=== PATIENT | female | born 1990 | race Asian ===

== ENCOUNTER 2019-02-20 16:41 | Emergency (ER) | payer SELFPAY ==
[~2019-02-20] VITALS: Ht 162.6 cm; Wt 88.2 kg
[2019-02-20 17:09] VITALS: Ht 162.6 cm; Wt 88.2 kg
[2019-02-20] MEDS ORDERED: ACETAMINOPHEN 500 MG TAB PO STA (17:37)
[2019-02-20] MEDS ORDERED: KETOROLAC 60 MG INJ IM STA (17:37)
[2019-02-20] MEDS ORDERED: DEXAMETHASONE 10 MG/ML 1 ML INJ IM ONE (18:00)
[2019-02-20] MEDS ORDERED: AMOX500C2 PO (19:12)
[2019-02-20] MEDS ORDERED: ACET500C5 PO (19:14)
[2019-02-20] MEDS ORDERED: IBUP800T48 PO (19:14)
[2019-02-20 19:18] VITALS: BP 126/70; PULSE 77; RESP 18
--- NOTE | 2019-02-20 20:04 | ERD ---
ER Documentation Chief Complaint Chief Complaint pt has st and cough x HPI History of Present Illness: 28-year-old female with no past medical to coming today with complaint of sore throat and nonproductive cough. Patient reports for 3 days. T-max of 101 yesterday. Denies difficulty swallowing. Denies any other associated symptoms. At home pharmacological/nonpharmacological treatment for symptoms: Acetaminophen yesterday Denies social concerns; Denies recent foreign travel ROS All systems reviewed and are negative except as per history of present illness. Medications Home Meds Active Scripts Acetaminophen* (Tylophen*) 500 Mg Capsule, 2 CAP PO Q6 PRN for PAIN AND OR ELEVATED TEMP, #20 CAP Prov:CHAY KAUR V [employer] 02/20/19 Ibuprofen* (Motrin*) 800 Mg Tab, 800 MG PO Q6H PRN for PAIN AND OR ELEVATED TEMP, #30 TAB Prov:CHAY KAUR NP 02/20/19 Amoxicillin* (Amoxicillin*) 500 Mg Cap, 500 MG PO TID for STREP THROAT INFECTION for 10 Days, CAP Prov:CHAY KAUR NP 02/20/19 Allergies Allergies: Coded Allergies: No Known Allergy (Unverified , 02/20/19) PMhx/Soc Medical and Surgical Hx: pt denies Medical Hx, pt denies Surgical Hx Hx Alcohol Use: No Hx Substance Use: No Hx Tobacco Use: No FmHx Family History: diabetes; No coronary disease Physical Exam Vitals Vital Signs Date Temp Pulse Resp B/P (MAP) Pulse Ox O2 O2 Flow FiO2 Time Delivery Rate 02/20/19 98.6 77 18 126/70 97 Room Air 19:18 (88) 02/20/19 98.6 77 18 130/85 100 17:09 (100) Physical Exam Const: No acute distress Head: Atraumatic Eyes: Normal Conjunctiva ENT: Normal External Ears, Nose and Mouth. Erythema noted to headaches, 3+ tonsils, no tonsillar exudate. Neck: Full range of motion. No meningismus. Resp: Clear to auscultation bilaterally Cardio: Regular rate and rhythm, no murmurs Abd: Soft, non tender, non distended. Normal bowel sounds Skin: No petechiae or rashes Back: No midline or flank tenderness Ext: No cyanosis, or edema Neur: Awake and alert Psych: Normal Mood and Affect Results 24 hrs Laboratory Tests Test 02/20/19 18:06 POC Beta HCG, Qualitative NEGATIVE Current Medications Medications Dose Sig/Misty Start Time Status Last (Trade) Ordered Route PRN Stop Time Admin Dose Reason Admin 10 mg ONCE ONCE 02/20/19 DC 02/20/19 Dexamethasone IM 18:00 18:10 (Decadron) 02/20/19 18:01 Ketorolac 60 mg ONCE STAT 02/20/19 DC 02/20/19 Tromethamine IM 17:37 18:14 (Toradol) 02/20/19 17:39 1,000 mg ONCE STAT 02/20/19 DC 02/20/19 Acetaminophen PO 17:37 18:10 (Tylenol 02/20/19 17:39 Tab) Procedures/MDM ED course includes a thorough examination and history. Medications: Dexamethasone, Toradol, acetaminophen Imaging: --- Labs: Urine , rapid strep Low suspicion for life-threatening medical emergency. Low suspicion for HEENT medical emergency requires hospitalization intervention. Low suspicion of peritonsillar abscess. Otherwise healthy patient presenting with constellation of symptoms likely representing uncomplicated pharyngitis as characterized by history, physical exam findings, lab findings . Urine negative. Rapid strep positive. No respiratory distress, otherwise relatively well appearing and nontoxic. Patient reassessment revealed decrease in pain. Patient hemodynamic stable and afebrile. Patient educated on diagnoses, prescriptions, follow-up care, return precautions. Strict return precautions given for worsening condition; questions answered discharge. Disposition for discharge with followup in 2 days with PCP/clinic. Departure Diagnosis: Primary Impression: Acute streptococcal pharyngitis Condition: Stable Patient Instructions: Strep Throat Referrals: [facility] YOU HAVE RECEIVED A MEDICAL SCREENING EXAM AND THE RESULTS INDICATE THAT YOU DO NOT HAVE A CONDITION THAT REQUIRES URGENT TREATMENT IN THE EMERGENCY DEPARTMENT. FURTHER EVALUATION AND TREATMENT OF YOUR CONDITION CAN WAIT UNTIL YOU ARE SEEN IN YOUR DOCTORS OFFICE WITHIN THE NEXT 1-2 DAYS. IT IS YOUR RESPONSIBILITY TO MAKE AN APPOINTMENT FOR FOLOW-UP CARE. IF YOU HAVE A PRIMARY DOCTOR --you should call your primary doctor and schedule an appointment IF YOU DO NOT HAVE A PRIMARY DOCTOR YOU CAN CALL OUR PHYSICIAN REFERRAL HOTLINE AT IF YOU CAN NOT AFFORD TO SEE A PHYSICIAN YOU CAN CHOSE FROM THE FOLLOWING [facility] [address] [facility]. [facility] [address] [facility] [address] [facility] [address] [facility]. [facility] [address] [facility] [address] [facility]. [facility] YOU HAVE RECEIVED A MEDICAL SCREENING EXAM AND THE RESULTS INDICATE THAT YOU DO NOT HAVE A CONDITION THAT REQUIRES URGENT TREATMENT IN THE EMERGENCY DEPARTMENT. FURTHER EVALUATION AND TREATMENT OF YOUR CONDITION CAN WAIT UNTIL YOU ARE SEEN IN YOUR DOCTORS OFFICE WITHIN THE NEXT 1-2 DAYS. IT IS YOUR RESPONSIBILITY TO MAKE AN APPOINTMENT FOR FOLOW-UP CARE. IF YOU HAVE A PRIMARY DOCTOR --you should call your primary doctor and schedule and appointment IF YOU DO NOT HAVE A PRIMARY DOCTOR YOU CAN CALL OUR PHYSICIAN REFERRAL HOTLINE AT . IF YOU CAN NOT AFFORD TO SEE A PHYSICIAN YOU CAN CHOSE FROM THE FOLLOWING [facility] INSTITUTIONS: [facility] [address] [place] [address] [facility] [address] [place] [address] [facility] [address] [place] [address] Additional Instructions: Thank you very much for allowing us to participate in your care. Your health and safety is our top priority at [facility]. It is important to read all discharge instructions and education provided in your discharge packet. Call your primary care doctor TOMORROW for an appointment during the next 2-4 days and bring all the information and medications prescribed. Have prescriptions filled and follow precisely the directions on the label. -Amoxicillin as an antibiotic; take this medication every day every 8 hours as listed on your prescription. You must complete the entire course of treatment that is listed on your prescription this is very important because it takes a certain number of days to kill the bacteria that is causing the infection. -Ibuprofen and acetaminophen is for pain and fever; both medications can be given at the same time if it is time for the next dose (acetaminophen every 4 hours, ibuprofen every 6 hours). It is important to have adequate fever control to prevent febrile complications such as seizures. If the symptoms get worse and your provider is unavailable, return to the Emergency Department immediately. CHAY KAUR NP Feb 20, 2019 20:04
== END 2019-02-20 19:18 | disposition home or self-care (01) ==
LOC: FTE 16:41
DX: J02.0 Streptococcal pharyngitis (principal)
CPT/HCPCS: 81025; 87880; 96372; 99284; J1100; J1885